=== PATIENT | male | born 1995 | race Caucasian/White ===

== ENCOUNTER 2017-03-28 02:57 | Emergency (ER) | payer SELFPAY ==
[~2017-03-28] VITALS: Ht 185.4 cm; Wt 81.6 kg
--- NOTE | 2017-03-28 03:00 | NUR ---
TO BED 4 C/O ANXIETY AFTER TAKING 10TAB ADDERALL. PT STATES "I JUST WANTED TO GET HIGH, I SMOKE SOME MARIJUANA TOO". PT AAOX4 NO ACUTE DISTRESS NOTED, RESP EVEN AND UNLABORED. PT APPEARS VERY ANXIOUS. PT COOPERATIVE AT THIS TIME. ER MD AT BEDSIDE TO EVAL PT WITH ORDERS RECEIVED.
[2017-03-28] MEDS ORDERED: LORAZEPAM INJ 2 MG/ML VIAL ONE ×2 (03:09→04:55)
--- NOTE | 2017-03-28 03:24 | NUR ---
PT MEDICATED BY RN PER ER MD ORDER.
[2017-03-28 03:30] LABS: BASOPHILS # (AUTO) 0.1 /CMM (0.0-0.2); BASOPHILS % (AUTO) 1.3 % (0.0-2.0); EOSINOPHILS # (AUTO) 0.2 /CMM (0.0-0.7); EOSINOPHILS % (AUTO) 2.4 % (0.0-6.0); HEMATOCRIT 49 % (39-51); HEMOGLOBIN 16.9 g/dL (13.5-17.5); LYMPHOCYTES # (AUTO) 2.1 /CMM (0.8-4.8); MEAN CORPUSCULAR HEMOGLOBIN 31 PG (26.0-33.0); MEAN CORPUSCULAR HGB CONC 34 g/dl (31.0-36.0); MEAN CORPUSCULAR VOLUME 90 fL (80-96); MONOCYTES # (AUTO) 0.8 /CMM (0.1-1.30); MONOCYTES % (AUTO) 11.4 % (2.0-12.0); NEUTROPHILS # (AUTO) 3.6 /CMM (1.8-8.9); NEUTROPHILS % (AUTO) 53.9 % (43.0-81.0); PLATELET COUNT (AUTO) 265 /CMM (150-450); RDW COEFFICIENT OF VARIATION 12.5 (11.5-15.0); RED BLOOD CELL COUNT(AUTO) 5.51 MIL/uL (4.5-6.0); WHITE BLOOD COUNT (AUTO) 6.8 K/uL (4.3-11.0)
[2017-03-28] MEDS ORDERED: IV NS 0.9% 1,000 ML BAG IV ONE (03:30)
[2017-03-28] MEDS ORDERED: ASPIRIN 325 MG TABLET PO ONE (03:30)
[2017-03-28] MEDS ORDERED: LORAZEPAM INJ 2 MG/ML VIAL IV ONE ×2 (03:30→05:00)
[2017-03-28 03:39] LABS: CARBON DIOXIDE 29 mmol/L (21-32); CHLORIDE 106 mmol/L (98-107); CREATININE 0.9 mg/dL (0.6-1.3); GLUCOSE 125 mg/dL (74-106); POTASSIUM 3.8 mmol/L (3.5-5.1); SODIUM SERUM 142 mmol/L (136-145); UREA NITROGEN, BLOOD 13 mg/dL (7-18)
[2017-03-28 03:45] LABS: ACETAMINOPHEN 0 ug/ml (10-30); ALANINE AMINOTRANSFERASE 28 U/L (12-78); ALBUMIN 4.1 g/dL (3.4-5.0); ALCOHOL, BLOOD < 3 mg/dL (0-0); ALKALINE PHOSPHATASE 81 U/L (46-116); ASPARTATE AMINOTRANSFERASE 15 U/L (15-37); BILIRUBIN,DIRECT 0.1 mg/dL (0.0-0.2); BILIRUBIN,TOTAL 0.5 mg/dL (0.2-1.0); SALICYLATE 0.8 mg/dL (2.8-20.0); TOTAL PROTEIN, SERUM 7.7 g/dL (6.4-8.2)
[2017-03-28 03:47] LABS: TROPONIN I < 0.017 ng/mL (0.00-0.056)
[2017-03-28] MEDS ORDERED: ASPIRIN 325 MG TABLET ONE (03:47)
[2017-03-28 03:53] LABS: INR 0.97 (0.87-1.13); PROTHROMBIN TIME 10.1 SECS (9.5-12.7)
--- NOTE | 2017-03-28 04:46 | NUR ---
PT REMAINS ANXIOUS. ER MD MADE AWARE. ER MD AT BEDSIDE TO RE-EVAL PT WITH ORDERS RECEIVED. RN TO MEDICATE PT.
--- NOTE | 2017-03-28 04:57 | NUR ---
PT MEDICATED BY RN PER ER MD ORDER.
--- NOTE | 2017-03-28 06:58 | NUR ---
IV removed. Catheter intact and site benign. Pressure and 4x4 applied to site. No bleeding noted. Patient discharged to home in stable condition. Written and verbal after care instructions given. Patient verbalizes understanding of instruction. ambulatory with a steady gait noted. pt aaox4 no acute distress noted, resp even and unlaboerd. advice pt not to drive or operate any machinery due to pt was given narcotic medicine. pt verbalized understanding.
[2017-03-28 06:59] VITALS: BP 148/92
--- NOTE | 2017-03-28 07:00 | NUR ---
pt friend at bedside to take pt home.
[2017-03-28] MEDS ORDERED: BUPR-51 PO (17:37)
[2017-03-28] MEDS ORDERED: ARIP15TA8 PO (17:37)
[2017-03-28] MEDS ORDERED: ESCI10TA PO (17:37)
== END 2017-03-28 07:05 | disposition home or self-care (01) ==
LOC: ER 02:58
DX: T43.621A Poisoning by amphetamines, accidental (unintentional), initial encounter (principal); F32.9 Major depressive disorder, single episode, unspecified; F42.9 Obsessive-compulsive disorder, unspecified; F10.10 Alcohol abuse, uncomplicated; F17.200 Nicotine dependence, unspecified, uncomplicated; Z79.82 Long term (current) use of aspirin; Y92.89 Other specified places as the place of occurrence of the external cause
CPT/HCPCS: 36415; 71010; 80048; 80076; 80305; 80329; 84484; 85025; 85730; 93005; 96361; 96374; 96376; 99285; A4606; G0480 ×2; J2060 ×2; J7030; Z7610

== ENCOUNTER 2017-03-28 10:22 | Emergency (ER) | payer SELFPAY ==
[~2017-03-28] VITALS: Ht 182.9 cm; Wt 77.1 kg
--- NOTE | 2017-03-28 11:00 | NUR ---
C/O TOOK ADDERAL 17 TABS SINCE YESTERDAY . PALPITATION, pt put monitor, seen by , and ekg at bs
[2017-03-28] MEDS ORDERED: LORAZEPAM 1 MG TABLET ONE (11:23)
[2017-03-28] MEDS ORDERED: LORAZEPAM 1 MG TABLET PO ONE (11:30)
[2017-03-28] MEDS ORDERED: IV NS 0.9% 1,000 ML BAG IV ONE (14:30)
[2017-03-28 14:42] LABS: CALCIUM, SERUM 8.8 mg/dL (8.5-10.1); CREATININE 0.9 mg/dL (0.6-1.3); MAGNESIUM 1.8 mg/dL (1.8-2.4); POTASSIUM 3.7 mmol/L (3.5-5.1)
[2017-03-28 15:10] LABS: THYROID STIMULATING HORMONE 1.282 uIU/mL (0.358-3.74)
[2017-03-28] MEDS ORDERED: METOPROLOL TARTRATE INJ 5 MG/5 ML AMPUL IV ONE ×2 (15:30→16:30)
[2017-03-28] MEDS ORDERED: METOPROLOL SUCCINATE 25 MG TAB.SR.24H PO SCH (15:30)
[2017-03-28] MEDS ORDERED: METOPROLOL TARTRATE INJ 5 MG/5 ML AMPUL ONE ×2 (15:33→16:15)
[2017-03-28] MEDS ORDERED: METOPROLOL TARTRATE 25 MG TABLET ONE (15:33)
[2017-03-28] MEDS ORDERED: LABETALOL 20 MG/4 ML VIAL IV ONE (17:00)
[2017-03-28] MEDS ORDERED: LABETALOL HCL IV 100MG VIAL IV ONE (17:30)
[2017-03-28] MEDS ORDERED: ARIP15TA8 PO (17:37)
[2017-03-28] MEDS ORDERED: ESCI10TA PO (17:37)
[2017-03-28] MEDS ORDERED: BUPR-51 PO (17:37)
[2017-03-28] MEDS ORDERED: LORAZEPAM INJ 2 MG/ML VIAL IV ONE (18:30)
[2017-03-28] MEDS ORDERED: IV NS 0.9% 1,000 ML IV PRN (18:30)
[2017-03-28] MEDS ORDERED: LORAZEPAM INJ 2 MG/ML VIAL ONE (18:31)
--- NOTE | 2017-03-28 19:28 | NUR ---
Patient discharged to home in stable condition. Written and verbal after care instructions given. Patient verbalizes understanding of instruction. ambulatory with steady gait. nad noted. pt aao x4, vss. no further complaints. IV removed. Catheter intact and site benign. Pressure and 4x4 applied to site. No bleeding noted.
[2017-03-28 19:31] VITALS: BP 157/101
== END 2017-03-28 19:27 | disposition home or self-care (01) ==
LOC: ER 10:27
DX: R00.2 Palpitations (principal); R00.0 Tachycardia, unspecified; F12.90 Cannabis use, unspecified, uncomplicated; F19.10 Other psychoactive substance abuse, uncomplicated; F32.9 Major depressive disorder, single episode, unspecified; F41.1 Generalized anxiety disorder; F42.9 Obsessive-compulsive disorder, unspecified; I10 Essential (primary) hypertension; F10.10 Alcohol abuse, uncomplicated; F17.200 Nicotine dependence, unspecified, uncomplicated
CPT/HCPCS: 36415; 71010; 80048; 83735; 84443; 93005 ×2; 96361; 96374; 96375; 96376; 99291; A4606; J2060; J3490 ×3; J7030 ×2; Z7610

== ENCOUNTER 2017-08-09 21:56 | Emergency (ER) | payer OTHER ==
[~2017-08-09] VITALS: Ht 182.9 cm; Wt 95.3 kg
[~2017-08-09 21:56] MED LIST: ARIP15TA8 PO; BUPR-51 PO; ESCI10TA PO
--- NOTE | 2017-08-09 22:04 | NUR ---
BB FRIEND; "HIGH ON WEED AND XANAX AND RED BULL"
[2017-08-09] MEDS ORDERED: LORAZEPAM INJ 2 MG/ML VIAL ONE (22:46)
[2017-08-09] MEDS ORDERED: LORAZEPAM INJ 2 MG/ML VIAL IV ONE (23:00)
[2017-08-09] MEDS ORDERED: IV NS 0.9% 1,000 ML BAG IV ONE (23:00)
--- NOTE | 2017-08-09 23:02 | NUR ---
LAC #18 IV ACCESS. BLOOD SAMPLE COLLECTED SENT TO LAB
[2017-08-09 23:18] LABS: BASOPHILS % (AUTO) 0.2 % (0.0-2.0); EOSINOPHILS % (AUTO) 0.1 % (0.0-6.0); HEMATOCRIT 45 % (39-51); HEMOGLOBIN 15.7 g/dL (13.5-17.5); LYMPHOCYTES # (AUTO) 1.7 /CMM (0.8-4.8); LYMPHOCYTES % (AUTO) 11.7 % (20.0-44.0); MEAN CORPUSCULAR HGB CONC 35 g/dl (31.0-36.0); MEAN CORPUSCULAR VOLUME 89 fL (80-96); MONOCYTES # (AUTO) 1.5 /CMM (0.1-1.30); MONOCYTES % (AUTO) 9.9 % (2.0-12.0); NEUTROPHILS # (AUTO) 11.4 /CMM (1.8-8.9); NEUTROPHILS % (AUTO) 78.1 % (43.0-81.0); PLATELET COUNT (AUTO) 268 /CMM (150-450); RDW COEFFICIENT OF VARIATION 12.8 (11.5-15.0); RED BLOOD CELL COUNT(AUTO) 5.03 MIL/uL (4.5-6.0); WHITE BLOOD COUNT (AUTO) 14.6 K/uL (4.3-11.0)
[2017-08-09 23:30] LABS: CARBON DIOXIDE 25 mmol/L (21-32); CHLORIDE 98 mmol/L (98-107); CREATININE 1.7 mg/dL (0.6-1.3); GLUCOSE 111 mg/dL (74-106); POTASSIUM 3.6 mmol/L (3.5-5.1); SODIUM SERUM 136 mmol/L (136-145); UREA NITROGEN, BLOOD 26 mg/dL (7-18)
[2017-08-09 23:33] LABS: ALCOHOL, BLOOD < 3 mg/dL (0-0)
--- NOTE | 2017-08-09 23:39 | NUR ---
VERBAL ORDER DR ANTONIO 1000 ML NS X1
--- NOTE | 2017-08-09 23:55 | NUR ---
ENOCH AT BEDSIDE FOR PSYCH EVAL
[2017-08-10] MEDS ORDERED: IV NS 0.9% 1,000 ML BAG IV ONE
--- NOTE | 2017-08-10 00:27 | NUR ---
RECEIVED REPORT FROM TEOFILO GARAY FOR NOA. DR. ANTONIO SPEAKING TO FAMILY REGARDING POC.
--- NOTE | 2017-08-10 00:38 | NUR ---
RECEIVED A CALL FROM THE PT'S FATHER WHO WOULD LIKE TO SPEAK WITH THE PHYSICIAN FOOD SERVICE ASSOCIATE. PT NOTIFIED AND GAVE VERBAL APPROVAL FOR THE FATHER TO SPEAK WITH DR. ANTONIO.
--- NOTE | 2017-08-10 01:01 | NUR ---
SISTER DONNELL ALVAREZ HAS AGREED TO FINANCIAL REPORTING CONSULTANT THE PT AT 0800. CELL: [phone]
--- NOTE | 2017-08-10 04:15 | NUR ---
DR. ANTONIO SPEAKING TO DREW REGARDING POC.
--- NOTE | 2017-08-10 04:16 | NUR ---
MD AT BEDSIDE SPEAKING WITH PT. NOTED INCREASED AGGITATION IN PT, PT PULLED OUT IV.
[2017-08-10] MEDS ORDERED: OLANZAPINE 5 MG TABLET ONE (04:18)
[2017-08-10] MEDS ORDERED: OLANZAPINE 5 MG/TAB.RAPDIS PO ONE (04:30)
--- NOTE | 2017-08-10 07:09 | NUR ---
REPORT GIVEN TO TEOFILO MARTIN FOR NOA.
--- NOTE | 2017-08-10 08:07 | NUR ---
RENATO MOORE (SISTER):
[2017-08-10] MEDS ORDERED: PROP10TA68 PO (10:37)
[2017-08-10] MEDS ORDERED: CLON1TAB5 PO (10:37)
[2017-08-10] MEDS ORDERED: QUET50TA PO (10:37)
--- NOTE | 2017-08-10 12:35 | NUR ---
Patient pulled out before AM nurse shift arrived.
--- NOTE | 2017-08-10 12:37 | NUR ---
Patient discharged to sister to home in stable condition. Written and verbal after care instructions given. Patient verbalizes understanding of instruction. AAOx3, ambulates with stable gait.
[2017-08-10 12:39] VITALS: BP 135/89
== END 2017-08-10 12:43 | disposition home or self-care (01) ==
LOC: ER 21:57
DX: F19.10 Other psychoactive substance abuse, uncomplicated (principal); F41.9 Anxiety disorder, unspecified; F42.9 Obsessive-compulsive disorder, unspecified; F17.200 Nicotine dependence, unspecified, uncomplicated
CPT/HCPCS: 36415; 80048-TC; 85025-TC; A4606; G0480; J2060; J7030; Z7610